=== PATIENT | male | born 1955 | race Caucasian/White ===

== ENCOUNTER 2021-06-22 15:36 | Emergency (ER) | payer BC, SELFPAY ==
[2021-06-22 15:59] VITALS: BP 122/74; PULSE 87; RESP 22; TEMP 37.3; O2SAT 94; BMI 49.9
[2021-06-22 16:38] LABS: COVID19 -Nasal RAPID Negative (Negative)
--- NOTE | 2021-06-22 17:00 | PC.NURSE ---
Reports vague hx of cardiac problems that he doesn't believe are problems and doesn't associate cough and SOB as being related.
--- NOTE | 2021-06-22 18:26 | DI.RAD.S_ITS ---
PROCEDURE: XR CHEST 2V INDICATIONS: shortness of breath TECHNIQUE: 2 views of the chest were acquired. COMPARISON: None. FINDINGS: Surgical changes and devices: None. Lungs and pleura: Lungs are clear. No pleural effusions or pneumothorax. Mediastinum: Heart size is enlarged, there is mild vascular congestion present. Bones and chest wall: No suspicious bony abnormalities. Soft tissues appear unremarkable. IMPRESSION: Cardiomegaly mild vascular congestion Approved by: Merrill Paez M.D. on 06/22/2021 at 18:26
--- NOTE | 2021-06-22 19:15 | ED.GENADULT ---
HPI - General Adult <Naif Segura PA-C - Last Filed: 06/23/21 13:43> General Chief complaint: Upper Respiratory Symptoms Stated complaint: SOB, fatigue, insomnia, dairrhea, x1-2weeks Time Seen by Provider: 06/22/21 16:53 History of Present Illness HPI narrative: 65-year-old male with a history of hypertension, hyperlipidemia presents to the ED with 1 week of shortness of breath. Patient states that [place] he started experiencing shortness of breath. Aggravated by activity. Patient endorses that he has been feeling better for the last 2 days. Patient states that his symptoms 1st started as diarrhea, muscle aches 2 weeks ago. Those symptoms have since then resolved. Patient denies fever, chills, chest pain, nausea, vomiting, abdominal pain, dysuria, lightheadedness, dizziness, syncope. Denies history of heart failure. Denies drug use, tobacco use. Occasional alcohol use. Review of Systems <Naif Segura PA-C - Last Filed: 06/23/21 13:43> Constitutional Constitutional: Denies chills, Denies fatigue, Denies fever(s), Denies frequent falls, Denies lethargy and Denies weakness Eyes Eyes: Denies change in vision, Denies eye discharge, Denies irritation and Denies loss of vision ENT Ears, Nose, Mouth, and Throat: Denies change in voice, Denies dizziness, Denies neck pain, Denies sore throat and Denies throat swelling Cardiovascular Cardiovascular: Denies chest pain, Denies irregular heart rhythm, Denies lightheadedness, Denies palpitations, Reports dyspnea, Denies dyspnea on exertion and Denies orthopnea Respiratory Respiratory: Denies cough, Reports dyspnea, Denies dyspnea on exertion and Denies wheezing Gastrointestinal Gastrointestinal: Denies abdominal pain, Denies change in bowel habits, Denies diarrhea, Denies nausea and Denies vomiting Musculoskeletal Musculoskeletal: Denies neck pain and Denies numbness Integumentary/Breasts Skin/Breast: Denies pruritus, Denies erythema, Denies rash and Denies wounds Neurologic Neurologic: Denies behavioral changes, Denies confusion, Denies dizziness, Denies frequent falls, Denies loss of vision, Denies numbness and Denies weakness Psychiatric Psychiatric: Denies anxiety, Denies behavioral changes, Denies confusion, Denies depression, Denies homicidal ideation and Denies suicidal ideation Endocrine Endocrine: Denies fatigue, Denies flushing and Denies palpitations Hematologic/Lymphatic Hematologic/Lymphatic: Denies easy bruising Allergic/Immunologic Allergic/Immunologic: Denies urticaria, Denies throat swelling and Denies wheezing Exam <Naif Segura PA-C - Last Filed: 06/23/21 13:43> Initial Vital Signs Initial Vital Signs: Vital Signs Temperature 99.2 F 06/22/21 15:59 Pulse Rate 87 06/22/21 15:59 Respiratory Rate 22 06/22/21 15:59 Blood Pressure 122/74 06/22/21 15:59 Pulse Oximetry 94 06/22/21 15:59 Const General: cooperative HENMT Head: normocephalic and atraumatic Ears: external ears normal and TM's normal bilaterally Nose: external nose normal and No nasal discharge Face and sinus: sinuses nontender, face symmetric, no sinus tenderness and No dry mucous membranes Mouth: oral mucosae normal and moist mucous membranes Teeth and gingiva: dentition normal Throat: tonsils normal and uvula midline Eyes General: appearance normal, both eyes and all related structures Eyelids: eyelids normal Conjunctivae: conjunctivae normal Sclera: sclerae normal Pupils: PERRL EOM: EOM intact bilaterally Neck Neck: normal visual inspection, trachea midline, No lymphadenopathy, No midline deformity and No JVD Lymphatic: No lymphedema Chest Chest: normal inspection of the chest Resp Effort & Inspection: normal respiratory effort, able to speak in complete sentences, no respiratory distress and no use of accessory muscles Auscultation: clear to auscultation bilaterally, no rales, no rhonchi and no wheezes Cardio Rate: regular rate Rhythm: regular rhythm Heart Sounds: no click, no gallops, no murmurs and no rubs Pulses: normal peripheral pulses GI Inspection: non-distended Palpation: soft, no hepatosplenomegaly, No guarding, No pulsatile mass and No tender Auscultation: normal bowel sounds Back/Spine/Pelvis Back: No CVA tenderness Cervical Spine: cervical ROM normal and No pain with cervical ROM Thoracic/Lumbar Spine: thoracic and lumbar spine normal to inspection Skin General: no rashes or lesions noted, No jaundice and No petechiae Neuro General: patient alert, patient oriented x3, gait normal and no focal motor deficits Speech: speech normal Extrem General: full ROM, no clubbing, cyanosis or edema, no calf tenderness and edema (Bilaterla LE edema. Neurovascularly, pulses intact.) Psych Appearance: well kempt Mental Status: mental status grossly normal Attitude: cooperative Thought Content: normal and suicidality Judgment: judgment good <Shasta Odonnell MD - Last Filed: 06/28/21 05:45> Initial Vital Signs Initial Vital Signs: Vital Signs Temperature 99.2 F 06/22/21 15:59 Pulse Rate 87 06/22/21 15:59 Respiratory Rate 22 06/22/21 15:59 Blood Pressure 122/74 06/22/21 15:59 Pulse Oximetry 94 06/22/21 15:59 Course <Naif Segura PA-C - Last Filed: 06/23/21 13:43> Course Course Narrative: Patient rechecked and HR inthe 80s, no longer in afib. Patient is stable. Workup negative. Will discharge home with ED return precautions. Orders Ordered: ED Orders 06/22/21 16:06 COVID19 -Nasal swab/Pre-Proc Stat 06/22/21 18:26 XR chest 2V Stat EKG-12 Lead Stat 06/22/21 19:29 Complete Blood Count AUTO DIFF Stat Comprehensive Metabolic Panel Stat D Dimer Stat NT-proBNP (BNP-Adult 18+) Stat Troponin I Stat Vital Signs Vital signs: Vital Signs - 8 hr 06/22/21 15:59 06/22/21 20:45 Temperature 99.2 F Pulse Rate 87 83 Respiratory Rate 22 18 Blood Pressure 122/74 123/60 Pulse Oximetry 94 95 <Shasta Odonnell MD - Last Filed: 06/28/21 05:45> Orders Ordered: ED Orders 06/22/21 16:06 COVID19 -Nasal swab/Pre-Proc Stat 06/22/21 18:26 XR chest 2V Stat EKG-12 Lead Stat 06/22/21 19:29 Complete Blood Count AUTO DIFF Stat Comprehensive Metabolic Panel Stat D Dimer Stat NT-proBNP (BNP-Adult 18+) Stat Troponin I Stat Vital Signs Vital signs: Vital Signs - 8 hr 06/22/21 15:59 06/22/21 20:45 Temperature 99.2 F Pulse Rate 87 83 Respiratory Rate 22 18 Blood Pressure 122/74 123/60 Pulse Oximetry 94 95 Medical Decision Making <Naif Segura PA-C - Last Filed: 06/23/21 13:43> Medical Records Medical records reviewed: Yes I reviewed the patient's medical records. Lab Data Lab results narrative: Labs WNL. D-dimer 256, [facility] is under the 315 age adjusted d-dimer cutoff. BNP 800. Result diagrams: 06/22/21 19:29 06/22/21 19:29 Labs: Lab Results 06/22/21 06/22/21 06/22/21 Range/Units 16:06 19:29 19:29 WBC 8.2 (4.5-11.0) X10^3/uL RBC 5.78 (4.5-5.9) X10^6/uL Hgb 15.5 (13.5-17.5) g/dL Hct 47.9 (41-53) % MCV 83.0 (80-100) fL MCH 26.9 (26-34) PG MCHC 32.4 (30-36) % RDW 14.9 H (11.6-14.8) % Plt Count 248 (150-400) X10^3/uL Neut % (Auto) 60.4 (50-75) % Lymph % (Auto) 25.3 (25-40) % Orange % (Auto) 10.8 (3-14) % Eos % (Auto) 3.0 (2-4) % Baso % (Auto) 0.5 (0-2) % Neut # (Auto) 5000 (8462-2659) /uL Lymph # (Auto) 2100 (0532-7789) /uL Orange # (Auto) 900 (0-900) /uL Eos # (Auto) 200 (0-450) /uL Baso # (Auto) 0 (0-100) /uL D-Dimer (<230) ng/mL Sodium 142 (137-145) mmol/L Potassium 3.9 (3.4-5.1) mmol/L Chloride 106 (98-107) mmol/L Carbon Dioxide 32 (22-32) mmol/L BUN 17 (9-20) mg/dL Creatinine 0.78 (0.66-1.25) mg/dL Estimated GFR > 60.0 (>60) mL/min BUN/Creatinine Ratio 21.8 (6-22) Glucose 138 H (80-110) mg/dL Calcium 9.1 (8.4-10.2) mg/dL Total Bilirubin 0.4 (0.2-1.3) mg/dL AST 31 (17-59) IU/L ALT 21 (<50) IU/L Alkaline Phosphatase 65 (38-126) U/L Troponin I < 0.012 (0.01-0.034) ng/mL NT-Pro-B Natriuret Pep (<125) pg/mL Total Protein 7.0 (6.3-8.2) g/dL Albumin 3.9 (3.5-5.0) g/dL Globulin 3.1 (1.7-4.1) g/dL Albumin/Globulin Ratio 1.3 (1.0-2.8) SARS-CoV-2 (PCR) Negative (Negative) 06/22/21 06/22/21 Range/Units 19:29 19:29 WBC (4.5-11.0) X10^3/uL RBC (4.5-5.9) X10^6/uL Hgb (13.5-17.5) g/dL Hct (41-53) % MCV (80-100) fL MCH (26-34) PG MCHC (30-36) % RDW (11.6-14.8) % Plt Count (150-400) X10^3/uL Neut % (Auto) (50-75) % Lymph % (Auto) (25-40) % Orange % (Auto) (3-14) % Eos % (Auto) (2-4) % Baso % (Auto) (0-2) % Neut # (Auto) (8781-9200) /uL Lymph # (Auto) (9099-8097) /uL Orange # (Auto) (0-900) /uL Eos # (Auto) (0-450) /uL Baso # (Auto) (0-100) /uL D-Dimer 256 H (<230) ng/mL Sodium (137-145) mmol/L Potassium (3.4-5.1) mmol/L Chloride (98-107) mmol/L Carbon Dioxide (22-32) mmol/L BUN (9-20) mg/dL Creatinine (0.66-1.25) mg/dL Estimated GFR (>60) mL/min BUN/Creatinine Ratio (6-22) Glucose (80-110) mg/dL Calcium (8.4-10.2) mg/dL Total Bilirubin (0.2-1.3) mg/dL AST (17-59) IU/L ALT (<50) IU/L Alkaline Phosphatase (38-126) U/L Troponin I (0.01-0.034) ng/mL NT-Pro-B Natriuret Pep 800 H (<125) pg/mL Total Protein (6.3-8.2) g/dL Albumin (3.5-5.0) g/dL Globulin (1.7-4.1) g/dL Albumin/Globulin Ratio (1.0-2.8) SARS-CoV-2 (PCR) (Negative) Imaging Data Chest x-ray: Radiologist's Impression: PROCEDURE:? XR CHEST 2V ? INDICATIONS:? shortness of breath ? TECHNIQUE:? 2 views of the chest were acquired.? ? COMPARISON:? None. ? FINDINGS:? ? Surgical changes and devices:? None.? ? Lungs and pleura:? Lungs are clear.? No pleural effusions or pneumothorax.? ? Mediastinum:? Heart size is enlarged, there is mild vascular congestion present. ? Bones and chest wall:? No suspicious bony abnormalities.? Soft tissues appear unremarkable.? ? IMPRESSION:? Cardiomegaly mild vascular congestion ? ? ? Approved by: Merrill Paez M.D. on 06/22/2021 at 18:26? ECG Data Interpretation: afib with RVR 136bpm. No st-t changes MDM Narrative Medical decision making narrative: 65-year-old male with a history of hypertension, hyperlipidemia presents to the ED with 1 week of shortness of breath. Concern for COVID-19 versus other viral pneumonia versus CHF versus ACS versus PE. Will order EKG, chest x-ray, labs, troponin, BNP, D-dimer, COVID-19 test. Will re-evaluate. Dispo depends on results of workup. <Shasta Odonnell MD - Last Filed: 06/28/21 05:45> Lab Data Labs: Lab Results 06/22/21 06/22/21 06/22/21 Range/Units 16:06 19:29 19:29 WBC 8.2 (4.5-11.0) X10^3/uL RBC 5.78 (4.5-5.9) X10^6/uL Hgb 15.5 (13.5-17.5) g/dL Hct 47.9 (41-53) % MCV 83.0 (80-100) fL MCH 26.9 (26-34) PG MCHC 32.4 (30-36) % RDW 14.9 H (11.6-14.8) % Plt Count 248 (150-400) X10^3/uL Neut % (Auto) 60.4 (50-75) % Lymph % (Auto) 25.3 (25-40) % Orange % (Auto) 10.8 (3-14) % Eos % (Auto) 3.0 (2-4) % Baso % (Auto) 0.5 (0-2) % Neut # (Auto) 5000 (9712-9017) /uL Lymph # (Auto) 2100 (3569-3831) /uL Orange # (Auto) 900 (0-900) /uL Eos # (Auto) 200 (0-450) /uL Baso # (Auto) 0 (0-100) /uL D-Dimer (<230) ng/mL Sodium 142 (137-145) mmol/L Potassium 3.9 (3.4-5.1) mmol/L Chloride 106 (98-107) mmol/L Carbon Dioxide 32 (22-32) mmol/L BUN 17 (9-20) mg/dL Creatinine 0.78 (0.66-1.25) mg/dL Estimated GFR > 60.0 (>60) mL/min BUN/Creatinine Ratio 21.8 (6-22) Glucose 138 H (80-110) mg/dL Calcium 9.1 (8.4-10.2) mg/dL Total Bilirubin 0.4 (0.2-1.3) mg/dL AST 31 (17-59) IU/L ALT 21 (<50) IU/L Alkaline Phosphatase 65 (38-126) U/L Troponin I < 0.012 (0.01-0.034) ng/mL NT-Pro-B Natriuret Pep (<125) pg/mL Total Protein 7.0 (6.3-8.2) g/dL Albumin 3.9 (3.5-5.0) g/dL Globulin 3.1 (1.7-4.1) g/dL Albumin/Globulin Ratio 1.3 (1.0-2.8) SARS-CoV-2 (PCR) Negative (Negative) 06/22/21 06/22/21 Range/Units 19:29 19:29 WBC (4.5-11.0) X10^3/uL RBC (4.5-5.9) X10^6/uL Hgb (13.5-17.5) g/dL Hct (41-53) % MCV (80-100) fL MCH (26-34) PG MCHC (30-36) % RDW (11.6-14.8) % Plt Count (150-400) X10^3/uL Neut % (Auto) (50-75) % Lymph % (Auto) (25-40) % Orange % (Auto) (3-14) % Eos % (Auto) (2-4) % Baso % (Auto) (0-2) % Neut # (Auto) (0285-2505) /uL Lymph # (Auto) (0105-6841) /uL Orange # (Auto) (0-900) /uL Eos # (Auto) (0-450) /uL Baso # (Auto) (0-100) /uL D-Dimer 256 H (<230) ng/mL Sodium (137-145) mmol/L Potassium (3.4-5.1) mmol/L Chloride (98-107) mmol/L Carbon Dioxide (22-32) mmol/L BUN (9-20) mg/dL Creatinine (0.66-1.25) mg/dL Estimated GFR (>60) mL/min BUN/Creatinine Ratio (6-22) Glucose (80-110) mg/dL Calcium (8.4-10.2) mg/dL Total Bilirubin (0.2-1.3) mg/dL AST (17-59) IU/L ALT (<50) IU/L Alkaline Phosphatase (38-126) U/L Troponin I (0.01-0.034) ng/mL NT-Pro-B Natriuret Pep 800 H (<125) pg/mL Total Protein (6.3-8.2) g/dL Albumin (3.5-5.0) g/dL Globulin (1.7-4.1) g/dL Albumin/Globulin Ratio (1.0-2.8) SARS-CoV-2 (PCR) (Negative) Discharge Plan Departure Patient Disposition: Home Clinical Impression: Shortness of breath Instructions: DI for Shortness of Breath Activity Restrictions/Additional Instructions: Your workup for your shortness of breath was normal today. Your COVID-19 test was negative. Your chest x-ray, EKG, labs were within normal limits. Return to the ED if your symptoms worsen including worsening shortness of breath, chest pain. <Shasta Odonnell MD - Last Filed: 06/28/21 05:45> [facility] I was immediately available in the department for consultation throughout this patient's visit. I agree with documentation as above. Shasta Odonnell MD
[2021-06-22 19:42] LABS: Add Manual Diff / Slide Review NO; Basophils Absolute Auto 0 /uL (0-100); Basophils Percent Auto 0.5 % (0-2); Eosinophils Absolute Auto 200 /uL (0-450); Hematocrit 47.9 % (41-53); Hemoglobin 15.5 g/dL (13.5-17.5); Lymphocytes Absolute Auto 2100 /uL (1100-4500); Lymphocytes Percent Auto 25.3 % (25-40); Mean Corpuscular HGB Conc 32.4 % (30-36); Mean Corpuscular Hemoglobin 26.9 PG (26-34); Monocytes Absolute Auto 900 /uL (0-900); Monocytes Percent Auto 10.8 % (3-14); Neutrophils Absolute Auto 5000 /uL (1500-7000); Neutrophils Percent Auto 60.4 % (50-75); Platelet Count 248 X10^3/uL (150-400); Red Blood Cell Count 5.78 X10^6/uL (4.5-5.9); Red Cell Distribution Width 14.9 % (11.6-14.8); White Blood Cell Count 8.2 X10^3/uL (4.5-11.0)
[2021-06-22 20:00] LABS: D Dimer 256 ng/mL (<230)
[2021-06-22 20:03] LABS: Alanine Aminotransferase 21 IU/L (<50); Albumin 3.9 g/dL (3.5-5.0); Albumin Globulin Ratio 1.3 (1.0-2.8); Alkaline Phosphatase 65 U/L (38-126); Aspartate Aminotransferase 31 IU/L (17-59); BUN Creatinine Ratio 21.8 (6-22); Bilirubin Total 0.4 mg/dL (0.2-1.3); Blood Urea Nitrogen 17 mg/dL (9-20); Calcium 9.1 mg/dL (8.4-10.2); Carbon Dioxide 32 mmol/L (22-32); Chloride 106 mmol/L (98-107); Estimated Glomerular Filt Rate > 60.0 mL/min (>60); Globulin 3.1 g/dL (1.7-4.1); Glucose 138 mg/dL (80-110); HEMOLYSIS < 15 (0-50); Potassium 3.9 mmol/L (3.4-5.1); Sodium 142 mmol/L (137-145)
[2021-06-22 20:12] LABS: NT-proBNP (BNP-Adult 18+) 800 pg/mL (<125)
[2021-06-22 20:14] LABS: Troponin I < 0.012 ng/mL (0.01-0.034)
[2021-06-22 20:45] VITALS: BP 123/60; PULSE 83; RESP 18; O2SAT 95
== END 2021-06-22 20:59 | disposition home or self-care (01) ==
PROVIDERS: Emergency Medicine; Emergency Provider Student in an Organized Health Care Education/Training Program
DX: R06.02 Shortness of breath (principal); R07.9 Chest pain, unspecified; Z20.822 Contact with and (suspected) exposure to COVID-19
CPT/HCPCS: 36415; 71046; 80053; 83880; 84484; 85025; 85379; 87635; 93005; 99284; C9803